=== PATIENT | female | born 2000 | race Caucasian/White ===

== ENCOUNTER 2023-09-14 22:03 | Emergency (ER) | payer OTHER ==
[~2023-09-14] VITALS: Ht 160 cm; Wt 75.0 kg
[2023-09-14 22:16] VITALS: BP 112/91; PULSE 100; RESP 18; TEMP 97.8; O2SAT 99
== END 2023-09-14 23:51 | disposition left against medical advice (07) ==
LOC: ER 22:03
DX: M54.2 Cervicalgia (principal); J45.909 Unspecified asthma, uncomplicated; Z88.0 Allergy status to penicillin; Z88.8 Allergy status to other drugs, medicaments and biological substances
CPT/HCPCS: 99283